=== PATIENT | female | born 1995 | race Caucasian/White ===

== ENCOUNTER 2016-04-05 20:11 | Emergency (ER) | payer MEDICAID ==
[~2016-04-05] VITALS: Ht 165.1 cm; Wt 60.0 kg
[~2016-04-05 20:11] MED LIST: AMOX500T PO; ZOFR4TAB3 SL
[2016-04-05 20:12] VITALS: BP 112/76; PULSE 100; RESP 16; TEMP 97.6; O2SAT 100
[2016-04-06 02:04] VITALS: BP 118/76; PULSE 88; RESP 16; O2SAT 100
[2016-04-06 03:03] LABS: AUTOMATED NEUTROPHIL # 3.4 TH/MM3 (1.8-7.7); BASOPHIL # 0.1 TH/MM3 (0-0.2); EOSINOPHIL # 0.2 TH/MM3 (0-0.4); EOSINOPHIL % 2.3 % (0.0-4.0); HEMATOCRIT 34.2 % (35.0-46.0); LYMPH % 32.8 % (9.0-44.0); LYMPHOCYTE # 2.2 TH/MM3 (1.0-4.8); MEAN CELL VOLUME 70.8 FL (80.0-100.0); MEAN CORPUSCULAR HEMOGLOBIN 22.6 PG (27.0-34.0); MEAN CORPUSCULAR HGB CONC 31.9 % (32.0-36.0); NEUT % 50.9 % (16.0-70.0); PLATELET COUNT 306 TH/MM3 (150-450); RED BLOOD COUNT 4.82 MIL/MM3 (4.00-5.30); RED CELL DISTRIBUTION WIDTH 17.4 % (11.6-17.2); WHITE BLOOD COUNT 6.7 TH/MM3 (4.0-11.0)
[2016-04-06 03:13] LABS: BACTERIA, URINE OCC /hpf; BLOOD, URINE LARGE (NEG); GLUCOSE,URINE NEG (NEG); KETONE, URINE NEG (NEG); NITRITE,URINE NEG (NEG)
[2016-04-06 03:14] LABS: COMMENT (UR) CULTURE INDICATED; CULTURE IF INDICATED CULTURE INDICATED; URINE COLOR RED (YELLW/STRAW)
[2016-04-06 03:17] LABS: HEMO FLAGS AUTO DIFF
[2016-04-06 03:30] LABS: BETA HCG QUANT LESS THAN 1 MIU/ML (0-5)
[2016-04-06 03:38] LABS: PLATELET ESTIMATE SMEAR NORMAL (NORMAL); PLATELET MORPHOLOGY NORMAL (NORMAL); SCAN/DIFF AUTO DIFF CONFIRMED
== END 2016-04-06 05:26 | disposition left against medical advice (07) ==
LOC: NED 20:11
DX: O26.91 Pregnancy related conditions, unspecified, first trimester (principal); Z3A.08 8 weeks gestation of pregnancy; R82.90 Unspecified abnormal findings in urine
CPT/HCPCS: 81001; 84702; 85025; 87086; 99281

== ENCOUNTER 2016-04-14 18:23 | Emergency (ER) | payer MEDICAID ==
[~2016-04-14] VITALS: Ht 165.1 cm; Wt 60.0 kg
[2016-04-14 18:28] VITALS: BP 110/74; PULSE 113; RESP 15; TEMP 98; O2SAT 100
--- NOTE | 2016-04-14 18:49 | PD ---
HPI Chief Complaint: Medical Clearance Time Seen by Provider: 18:49 Travel History International Travel<30 days: No Contact w/Intl Traveler<30days: No Traveled to known affect area: No History of Present Illness HPI 20 year-old female presents to the emergency department for evaluation requesting her records from April 05. Patient was protocoled by nursing staff in triage on April 05, 2016. Patient stated at that time she was 8 weeks and was having lower abdominal pain. Review of the records show a beta hCG of less than 1. Patient had left without being seen her to these results. Patient's urine however had significant amount of blood, white blood cells, and culture was indicated. Gram-positive jam, suspected to be contaminant group. Patient continues to have some lower abdominal pressure. No vaginal bleeding or discharge. Patient states she has not had a menstrual cycle since November 2015. PFSH Past Medical History Chemotherapy: Yes (CHEMOTHERAPY R/T TUMOR ON OPTIC NERVE ) Diminished Hearing: No Neurologic: Yes ?: Unknown : 0 Para: 0 Miscarriage: 0 : 0 Past Surgical History Other Surgery: Yes (PORT IMPLANTED/DC'D) Social History Alcohol Use: No Tobacco Use: No (vapor) Substance Use: No Allergies-Medications (Allergen,Severity, Reaction): Coded Allergies: No Known Allergies (Unverified , 04/05/16) Reported Meds & Prescriptions Reported Meds & Active Scripts Active Keflex (Cephalexin) 500 Mg Cap 500 Mg PO Q12H 7 Days Review of Systems Except as stated in HPI: all other systems reviewed are Neg Physical Exam Narrative GENERAL: Well-nourished female patient, in no acute distress SKIN: Warm and dry. HEAD: Atraumatic. Normocephalic. EYES: Pupils equal and round. No scleral icterus. No injection or drainage. ENT: No nasal bleeding or discharge. Mucous membranes pink and moist. NECK: Trachea midline. No JVD. CARDIOVASCULAR: Regular rate and rhythm. No murmur appreciated. RESPIRATORY: No accessory muscle use. Clear to auscultation. Breath sounds equal bilaterally. GASTROINTESTINAL: Abdomen soft, non-tender, nondistended. Mild suprapubic tenderness to palpation. Hepatic and splenic margins not palpable. MUSCULOSKELETAL: No obvious deformities. No clubbing. No cyanosis. No edema. NEUROLOGICAL: Awake and alert. No obvious cranial nerve deficits. Motor grossly within normal limits. Normal speech. Data Data Last Documented VS Vital Signs Date Time Temp Pulse Resp B/P Pulse Ox O2 Delivery O2 Flow Rate FiO2 04/14/16 18:28 98.0 113 15 110/74 100 Orders Urinalysis - C+S If Indicated (04/14/16 18:54) Ed Urine Pregnancytest Poc (04/14/16 18:54) Labs Laboratory Tests Test 04/14/16 18:50 Urine Color YELLOW Urine Turbidity HAZY Urine pH 5.5 Urine Specific [place] 1.030 Urine Protein 30 mg/dL Urine Glucose (UA) NEG mg/dL Urine Ketones NEG mg/dL Urine Occult Blood NEG Urine Nitrite NEG Urine Bilirubin NEG Urine Urobilinogen LESS THAN 2.0 MG/DL Urine Leukocyte Esterase SMALL Urine RBC 4 /hpf Urine WBC 3 /hpf Urine Squamous Epithelial 43 /hpf Cells Urine Transitional Epithelial <1 /hpf Cells Urine Mucus MANY /lpf Microscopic Urinalysis Comment CULT NOT INDICATED MDM Medical Decision Making Medical Screen Exam Complete: Yes Emergency Medical Condition: Yes Medical Record Reviewed: Yes Differential Diagnosis Cystitis versus pyelonephritis versus hematuria versus normal examination Narrative Course 20 year-old female presents to emergency department for evaluation, requesting records from her April 05, 2016 visit to the emergency department. Patient' s beta-hCG at that time was less than 1. Urine is negative. Patient has not had a menstrual cycle since November 2015. I've encouraged her to follow up with an [employer]. I will start her on Keflex because she is still having lower abdominal pressure. She'll be discharged and agrees to return immediately with any acute worsening of symptoms. Diagnosis Primary Impression: Negative test Additional Impressions: UTI (urinary tract infection) Qualified Code: N39.0 - Urinary tract infection with hematuria, site unspecified Amenorrhea Referrals: Primary Care Physician Patient Instructions: General Instructions, Urinary Tract Infection in Women ( ED) Additional Instructions: Follow-up with her primary care provider Seek [employer] evaluation Return immediately to the emergency department with any acute worsening of symptoms Med/Other Pt SpecificInfo: Prescription(s) given Scripts Cephalexin (Keflex)500 Mg [id number] Mg PO Q12H 7 Days Ref 0 Prov:Ambika Husain 04/14/16 Disposition: 01 DISCHARGE HOME Condition: Stable Ambika Husain Apr 14, 2016 18:49
[2016-04-14] MEDS ORDERED: CEPH-460 PO (19:25)
[2016-04-14 19:53] LABS: BLOOD, URINE NEG (NEG); COMMENT (UR) CULT NOT INDICATED; CULTURE IF INDICATED CULT NOT INDICATED; GLUCOSE,URINE NEG (NEG); KETONE, URINE NEG (NEG); MUCUS URINE MANY /lpf (OCC); NITRITE,URINE NEG (NEG); PH, URINE 5.5 (5.0-8.5); SQUAMOUS EPITHELIAL CELL URINE 43 /hpf (0-5); TRANSITIONAL EPI CELLS, URINE <1 /hpf; URINE COLOR YELLOW (YELLW/STRAW)
== END 2016-04-14 20:15 | disposition home or self-care (01) ==
LOC: NETRI 18:23
DX: Z32.02 Encounter for pregnancy test, result negative (principal); N39.0 Urinary tract infection, site not specified; R31.9 Hematuria, unspecified; N91.2 Amenorrhea, unspecified; Z86.69 Personal history of other diseases of the nervous system and sense organs
CPT/HCPCS: 81001; 99283